=== PATIENT | female | born 1950 | race Caucasian/White ===

== ENCOUNTER → 2019-08-30 | Outpatient (CLI) | payer OTHER | LOC: SJCVC 12:43 | DX: R94.31 Abnormal electrocardiogram [ECG] [EKG] (principal); R00.0 Tachycardia, unspecified; I44.7 Left bundle-branch block, unspecified; E78.00 Pure hypercholesterolemia, unspecified; I10 Essential (primary) hypertension ==

== ENCOUNTER → 2019-09-14 | Outpatient (CLI) | payer OTHER | LOC: SJCVCIMAG 08:13 | PROVIDERS: ATTEND Internal Medicine Cardiovascular Disease | DX: R94.31 Abnormal electrocardiogram [ECG] [EKG] (principal); R00.0 Tachycardia, unspecified; I44.7 Left bundle-branch block, unspecified; I10 Essential (primary) hypertension; E78.5 Hyperlipidemia, unspecified; Z82.49 Family history of ischemic heart disease and other diseases of the circulatory system ==

== ENCOUNTER → 2020-10-31 | Outpatient (CLI) | payer OTHER, MEDICARE | LOC: SJCVC 15:31 | PROVIDERS: ATTEND Internal Medicine Cardiovascular Disease | DX: R94.31 Abnormal electrocardiogram [ECG] [EKG] (principal); I44.7 Left bundle-branch block, unspecified; I10 Essential (primary) hypertension; E78.00 Pure hypercholesterolemia, unspecified; E78.5 Hyperlipidemia, unspecified; E55.9 Vitamin D deficiency, unspecified; Z72.89 Other problems related to lifestyle; Z79.82 Long term (current) use of aspirin; Z79.899 Other long term (current) drug therapy; Z88.5 Allergy status to narcotic agent ==